=== PATIENT | male | born 1985 | race Caucasian/White ===

== ENCOUNTER 2017-04-05 15:08 | Emergency (ER) | payer BC, MEDICAID ==
[~2017-04-05] VITALS: Ht 167.6 cm; Wt 76.0 kg
[2017-04-05] MEDS ORDERED: CITA10TA9 PO (15:37)
[2017-04-05 22:27] LABS: CLARITY URINE CLEAR (CLEAR); COLOR URINE YELLOW (YELLOW); GLUCOSE URINE NEGATIVE (NEGATIVE); KETONES URINE NEGATIVE (NEGATIVE); LEUKOCYTE ESTERASE URINE NEGATIVE (NEGATIVE); NITRITE URINE NEGATIVE (NEGATIVE); OCCULT BLOOD URINE NEGATIVE (NEGATIVE); PROTEIN URINE NEGATIVE (NEGATIVE)
[2017-04-05] MEDS ORDERED: LIDOCAINE 5% PATCH TOP SCH (23:15)
[2017-04-05 23:46] VITALS: BP 103/78
== END 2017-04-05 23:59 | disposition home or self-care (01) ==
LOC: ER 22:28
DX: S30.1XXA Contusion of abdominal wall, initial encounter (principal); F41.9 Anxiety disorder, unspecified; F17.210 Nicotine dependence, cigarettes, uncomplicated; W17.89XA Other fall from one level to another, initial encounter; Y93.89 Activity, other specified; Y92.520 Airport as the place of occurrence of the external cause; Y99.8 Other external cause status
CPT/HCPCS: 71111; 81003; 99285